=== PATIENT | male | born 1990 | race Two or more races ===

== ENCOUNTER 2023-07-08 23:25 | Emergency (ER) | payer OTHER ==
[~2023-07-08] VITALS: Ht 185.4 cm; Wt 104.0 kg
[2023-07-09 01:29] VITALS: BP 129/73; PULSE 100; RESP 16; TEMP 98.2; O2SAT 99
[2023-07-09] MEDS ORDERED: BACDST PO (01:41)
[2023-07-09] MEDS: cefTRIAXone SOD 1,000 MG VL IM ONE (01:43)
[2023-07-09] MEDS: KETOROLAC TROMETH 60MG/2ML VIAL IM ONE (01:43)
[2023-07-09] MEDS ORDERED: IBUP1TAB5 PO (01:45)
== END 2023-07-09 01:52 | disposition home or self-care (01) ==
LOC: ER 23:25
DX: L03.311 Cellulitis of abdominal wall (principal); Z79.899 Other long term (current) drug therapy
CPT/HCPCS: 96372; 99284; J0696; J1885